=== PATIENT | male | born 1990 | race Caucasian/White ===

== ENCOUNTER → 2018-01-21 | Outpatient (CLI) | payer BC, OTHER ==
[~2018-01-21] MED LIST: RNT150T PO
[2018-01-21 07:09] LABS: BASOPHILS % (AUTO) 1 % (0-10); EOSINOPHILS # (AUTO) 0.2 10^3/uL (0.0-0.3); EOSINOPHILS % (AUTO) 2 % (0-10); HEMATOCRIT 45 % (40-54); HEMOGLOBIN 15.1 G/DL (13.3-17.7); LYMPHOCYTES # (AUTO) 2.1 X 10^3 (1.0-4.0); LYMPHOCYTES % (AUTO) 27 % (12-44); MEAN CORPUSCULAR HEMOGLOBIN 30 PG (25-34); MEAN CORPUSCULAR HGB CONC 34 G/DL (32-36); MEAN CORPUSCULAR VOLUME 88 FL (80-99); MEAN PLATELET VOLUME 10.8 FL (7.4-10.4); MONOCYTES # (AUTO) 0.8 X 10^3 (0.0-1.0); MONOCYTES % (AUTO) 10 % (0-12); NEUTROPHILS # (AUTO) 4.8 X 10^3 (1.8-7.8); NEUTROPHILS % (AUTO) 61 % (42-75); PLATELET COUNT 215 10^3/uL (130-400); RED BLOOD COUNT 5.09 10^6/uL (4.35-5.85); RED CELL DISTRIBUTION WIDTH 13.3 % (10.0-14.5); WHITE BLOOD COUNT 7.9 10^3/uL (4.3-11.0)
[2018-01-21 07:30] LABS: ALANINE AMINOTRANSFERASE 32 U/L (0-55); ALBUMIN 4.5 GM/DL (3.2-4.5); ALKALINE PHOSPHATASE 75 U/L (40-136); AMYLASE 47 U/L (25-125); BILIRUBIN,TOTAL 0.7 MG/DL (0.1-1.0); BUN/CREATININE RATIO 14; CALCIUM 9.8 MG/DL (8.5-10.1); CARBON DIOXIDE 24 MMOL/L (21-32); CHLORIDE 103 MMOL/L (98-107); CREATININE SERUM 1.11 MG/DL (0.60-1.30); GFR ESTIMATED > 60; GLUCOSE 117 MG/DL (70-105); LIPASE 23 U/L (8-78); POTASSIUM 3.8 MMOL/L (3.6-5.0); SODIUM 142 MMOL/L (135-145); TOTAL PROTEIN 7.9 GM/DL (6.4-8.2)
[2018-01-21 07:54] LABS: ERYTHROCYTE SEDIMENTATION RATE 1 MM/HR (0-15)
--- NOTE | 2018-01-21 09:48 | Diagnostic Imaging Report ---
PROCEDURE: US abdomen complete. TECHNIQUE: Multiple real-time grayscale images were obtained over the abdomen in various projections. INDICATION: Bilateral upper quadrant pain. COMPARISON: CT abdomen and pelvis of 10/21/2016. FINDINGS: The liver is normal in size and echogenicity. There is no focal hepatic mass. The main portal vein is patent with antegrade flow. The gallbladder is distended without gallstones, wall thickening, or pericholecystic fluid. The common bile duct is not visualized due to obscuration from overlying bowel gas. The visualized portions of the pancreas are normal. Portions of the head and tail are obscured by overlying bowel gas. The kidneys are normal in size each measuring approximately 11 cm in length. No hydronephrosis, shadowing calculi, or suspicious mass lesion. The spleen is normal in size and has a stable cyst in lower pole measuring 1.3 x 1.2 x 1.1 cm. The aorta and IVC are normal in caliber where seen. Portions of the proximal aorta are obscured by overlying bowel gas. IMPRESSION: 1. Normal gallbladder. The common bile duct is obscured by overlying bowel gas, although there is no intrahepatic biliary duct dilatation. 2. Normal sonographic appearance of the kidneys and liver. 3. Stable small benign cyst in the lower pole of the spleen. Dictated by: Dictated on workstation # [id number]
== END ==
LOC: RAD 06:54
PROVIDERS: ATTEND Internal Medicine
DX: D73.4 Cyst of spleen (principal); R53.82 Chronic fatigue, unspecified; R50.9 Fever, unspecified
CPT/HCPCS: 36415; 76700; 80053; 82150; 83036; 83690; 85025; 85652

== ENCOUNTER → 2018-01-30 | Outpatient (CLI) | payer BC ==
[~2018-01-30] MED LIST changes: +CATHETER FLUSH 10 ML SYR IV PRN
== END ==
LOC: CARD 11:28
PROVIDERS: ATTEND Surgery
DX: R19.7 Diarrhea, unspecified (principal)
CPT/HCPCS: 78227

== ENCOUNTER 2018-02-25 05:50 | Outpatient (CLI) | payer BC ==
[~2018-02-25] VITALS: Ht 185.4 cm; Wt 104.3 kg
[~2018-02-25 05:50] MED LIST changes: -CATHETER FLUSH 10 ML SYR IV PRN
== END 2018-02-25 14:35 ==
LOC: PREOP 05:50
PROVIDERS: ATTEND Surgery
DX: Z01.818 Encounter for other preprocedural examination (principal); K82.8 Other specified diseases of gallbladder

== ENCOUNTER 2018-03-03 05:48 | Day surgery (SDC) | payer BC ==
[~2018-03-03] VITALS: Ht 185.4 cm; Wt 104.3 kg
[2018-03-03 06:10] VITALS: BP 158/94
[2018-03-03] MEDS ORDERED: ceFAZolin 2 GM IV Premixed 50 ML IV ONE (06:15)
[2018-03-03] MEDS: LACTATED RINGERS 1,000 ML IV PRN ×2 (06:30→08:50)
[2018-03-03 06:37] LABS: BASOPHILS % (AUTO) 1 % (0-10); EOSINOPHILS # (AUTO) 0.2 10^3/uL (0.0-0.3); EOSINOPHILS % (AUTO) 3 % (0-10); HEMATOCRIT 43 % (40-54); HEMOGLOBIN 14.6 G/DL (13.3-17.7); LYMPHOCYTES # (AUTO) 2.2 X 10^3 (1.0-4.0); LYMPHOCYTES % (AUTO) 26 % (12-44); MEAN CORPUSCULAR HEMOGLOBIN 30 PG (25-34); MEAN CORPUSCULAR HGB CONC 34 G/DL (32-36); MEAN CORPUSCULAR VOLUME 88 FL (80-99); MEAN PLATELET VOLUME 11.2 FL (7.4-10.4); MONOCYTES # (AUTO) 1.1 X 10^3 (0.0-1.0); MONOCYTES % (AUTO) 12 % (0-12); NEUTROPHILS # (AUTO) 5.2 X 10^3 (1.8-7.8); NEUTROPHILS % (AUTO) 59 % (42-75); PLATELET COUNT 199 10^3/uL (130-400); RED BLOOD COUNT 4.91 10^6/uL (4.35-5.85); RED CELL DISTRIBUTION WIDTH 13.3 % (10.0-14.5); WHITE BLOOD COUNT 8.8 10^3/uL (4.3-11.0)
[2018-03-03] MEDS ORDERED: CATHETER FLUSH 10 ML SYR IV PRN (06:45)
[2018-03-03] MEDS ORDERED: LACTATED RINGERS 1,000 ML IV ONE (07:05)
[2018-03-03] MEDS ORDERED: proPOfol 200 MG/20 ML (DIPRIVAN) VIAL IV ONE (07:05)
[2018-03-03] MEDS ORDERED: SEVOFLURANE (ULTANE) 15 ML INHAL SOLN ONE ×3 (07:05→09:09)
[2018-03-03] MEDS ORDERED: fentaNYL INJECTION 100 MCG/2 ML AMP ONE (07:05)
[2018-03-03] MEDS ORDERED: MIDAZOLAM 2 MG/2 ML (VERSED) VIAL ONE (07:05)
[2018-03-03] MEDS ORDERED: ROCURONIUM 10 MG/ML 5 ML SYRINGE IV ONE (07:05)
[2018-03-03] MEDS ORDERED: LIDOCAINE PF 2% 5 ML (XYLOCAINE) VIAL ONE (07:05)
[2018-03-03] MEDS ORDERED: DEXAMETHASONE 10 MG/ML (DECADRON) 1 ML VIAL ONE (07:05)
[2018-03-03] MEDS ORDERED: ONDANSETRON 4 MG/2 ML (SDV) Z0FRAN ONE (07:05)
[2018-03-03] MEDS ORDERED: LIDOCAINE/EPI 1%-1:200,000 (XYLOCAINE) 10 ML VIAL ONE (07:21)
--- NOTE | 2018-03-03 08:16 | Progress Note-Pre Operative ---
Pre-Operative Progress Note H&P Reviewed The H&P was reviewed, patient examined and no changes noted. Time Seen by Provider: 08:11 Date H&P Reviewed: Mar 03, 2018 Time H&P Reviewed: 08:11 Pre-Operative Diagnosis: Biliary Dyskinesia EDILIA GLEASON DO Mar 03, 2018 08:16
--- NOTE | 2018-03-03 09:14 | Progress Note-Post Operative ---
Post-Operative Progess Note Surgeon (s)/Office Aide (s) Surgeon EDILIA GLEASON DO Office Aide: Yoel Pre-Operative Diagnosis Biliary Dyskinesia Post-Operative Diagnosis Same Procedure & Operative Findings Date of Procedure 03/03/18 Procedure Performed/Findings Laparoscopic Cholecystectomy with robot Anesthesia Type GET Estimated Blood Loss Estimated blood loss (mL): scant Specimens/Packing Specimens Removed GB and contents EDILIA GLEASON DO Mar 03, 2018 09:14
[2018-03-03] MEDS ORDERED: ACHD5005 PO (09:15)
--- NOTE | 2018-03-03 09:17 | Discharge Inst-Surgical ---
Discharge Inst-Surgical Depart Medication/Instructions New, Converted or Re-Newed RX: RX Given to Pt/Family Patient Instructions Follow up Appt: Make appointment for 1 week; [phone]. Instructions: No lifting greater than 10 pounds. No strenuous activity. May shower in 24 hours, no tub bath or soaking. Use incentive spirometer at home as directed. No Smoking Skin/Wound Care: May remove bandages. You need to leave the Dermabond on over incision it will fall off on its own. Symptoms to Report: -Appetite Changes, Extremity Discoloration, Numbness/Tingling, Swelling Increased, Bleeding Excessive, Eyesight Changes, Pain Increased, Urine Color Change, Constipation(Persistent), Fever over 101 degree F, Pain/Pressure in chest, Urinating Difficulty, Cough Up/Vomit Blood, Heart Beat Irreg/Pounding, Pain/Pressure in jaw, Cramps in feet or legs, Lightheadedness, Pain/Pressure in shoulder, Diarrhea(Persistent), Memory Changes Suddenly, Questions/Concerns, Weight gain consecutive days, Dizziness/Fainting, Nausea/Vomiting, Shortness of Breath, Weight gain over 2 pounds. If eyes or skin turn yellow notify physician. If questions or concerns contact your physician Or seek help at emergency department. Activity Activity as Tolerated: Yes Activity Instructions: Avoid Pulling & Pushing, Avoid Stress to Incision Driving Instructions: No Driving/Refer to Diet Discharge Diet: Avoid Fatty Foods, Low Fat/Low Cholesterol Diet After 24 Hours: Clear Liquid if Nauseous If Any Problems/Questions/Issu: Contact Your Physician, Go to Emergency Room Skin/Wound Care Infection Signs and Symptoms: Increased Redness, Foul Odor of Wound, Increased Drainage, Skin Itchy or Has a Rash, Increased Swelling, Temperature Above 101 F Wound Care Comment: Heating pad to shoulder and neck tonight for pain Bathing Instructions: Shower Stitches/Anderson/Dermabond Dis: Dermabond Ice Pack: Ice On and Off Site EDILIA GLEASON DO Mar 03, 2018 09:17
[2018-03-03] MEDS ORDERED: fentaNYL INJECTION 100 MCG/2 ML AMP IVP PRN (09:45)
[2018-03-03] MEDS ORDERED: MEPERIDINE (DEMEROL) INJ 50 MG/ML IVP PRN (09:45)
[2018-03-03] MEDS ORDERED: ONDANSETRON 4 MG/2 ML (SDV) Z0FRAN IVP PRN (09:45)
[2018-03-03] MEDS: morphine INJ 10 MG/ML 1ML (SYR OR VIAL) IVP PRN ×2 (10:05→10:10)
[2018-03-03 10:35] VITALS: BP 154/91
[2018-03-03] MEDS ORDERED: HYDROcodone/APAP 5 MG/325 MG (LORTAB) TAB PO ONE (11:00)
[2018-03-03 11:05] VITALS: BP 144/92
[2018-03-03 11:35] VITALS: BP 143/93
--- NOTE | 2018-03-03 12:48 | Anesthesia-General Post-Op ---
General Patient Condition Mental Status/LOC: Same as Preop Cardiovascular: Satisfactory Nausea/Vomiting: Absent Respiratory: Satisfactory Pain: Controlled Complications: Absent Post Op Complications Complications None Follow Up Care/Instructions Patient Instructions None needed. Anesthesia/Patient Condition Patient Condition Patient is doing well, no complaints, stable vital signs, no apparent adverse anesthesia problems. No complications reported per nursing. JAY KAISER CRNA Mar 03, 2018 12:48
--- NOTE | 2018-03-04 00:13 | OPERATIVE REPORT ---
DATE OF SERVICE: PREOPERATIVE DIAGNOSIS: Biliary dyskinesia. POSTOPERATIVE DIAGNOSIS: Biliary dyskinesia. PROCEDURE: Laparoscopic cholecystectomy with robot. SURGEON: Dr. Romeo. PAYROLL AUDITOR: Ras Diallo DO. ANESTHESIA: General endotracheal tube. SPECIMEN: Gallbladder and contents. BLOOD LOSS: Scant. FLUIDS: Per anesthesia. POSTOPERATIVE CONDITION: Stable. INDICATION FOR PROCEDURE: The patient is a 27-year-old male who has been having some right upper quadrant pain and he had a HIDA scan which showed a 23% ejection fraction, which is indicative of biliary dyskinesia. FINDINGS: The patient had relatively normal appearing gallbladder, no adhesions. PROCEDURE NOTE: After informed consent was obtained, the patient was brought to the operating room, placed on the table in supine position. He was sterilely prepped and draped in normal fashion. Local lidocaine was used to infiltrate the skin above the umbilicus. I then made incision with #11 blade, carried down to skin into subcutaneous tissue, then deepened down to subcutaneous tissue with Bovie electrocautery, down to the fascia. Fascia then incised with Bovie electrocautery. Bluntly entered the abdomen, swept the finger around, then placed 0 Vicryl [id number] suture. Then placed 2 more ports using local lidocaine, 11-blade for stab incision and robotic 8 mm ports were placed under direct visualization and these were about 10 cm away from the midline port and then just out lateral to that another 5 cm, we placed a 5 mm VersaStep port using local lidocaine, 11-blade for stab incision and Versed system, all done under direct visualization. The patient was then placed slightly reverse Trendelenburg and rotated left. Robot was docked and instruments were placed. Dr. Diallo was then able to grasp the gallbladder taken at the fundus, taken in superior direction and able to grasp down to Myron's pouch and pulled in the inferolateral direction and start dissecting out the cystic duct and cystic artery. I was able to get around the cystic duct, placed two clips distally and one proximally and then cut with Bovie electrocautery and then able to find the cystic artery clipped once distally and then cut above this with a Bovie electrocautery and then took the gallbladder off the bed of liver with L-hook cautery. Once it was completely removed, placed a bag in the abdomen, placed the gallbladder in the bag and then removed this through a supraumbilical incision. Placed the port back in the abdomen, copiously irrigated with normal saline, suctioned this out, took pictures and then placed the patient back in supine position, undocked the robot and then removed all ports under direct visualization. Closed the supraumbilical incision with a 0 Vicryl suture previously placed. Copiously irrigated all incisions with normal saline and then closed the supraumbilical incision with 3 interrupted 4-0 undyed Monocryl subcuticular stitches closed with two 8 mm port incisions with 4-0 undyed Monocryl two interrupted sutures and then closed the skin at the 5 mm port with a single interrupted 4-0 undyed Monocryl subcuticular stitch. Area was cleaned and dried. Dermabond placed as well as Band-Aids and the patient then transferred to recovery room in stable condition. Sponge, instrument and needle counts correct at the end of the case. Job ID: [id number] DocumentID: [id number] Dictated Date: 03/03/2018 16:08:15 Racket Stringer Date: 03/04/2018 00:12:51 Dictated By: DO MARCY DYE
== END 2018-03-03 11:55 | disposition home or self-care (01) ==
LOC: SDC 05:48
PROVIDERS: ATTEND Surgery
DX: K82.8 Other specified diseases of gallbladder (principal); Z11.2 Encounter for screening for other bacterial diseases
CPT/HCPCS: 36415; 85025; 87081; 88304

== ENCOUNTER → 2022-03-23 | Outpatient (CLI) | payer BC ==
[~2022-03-23] MED LIST changes: +ACHD5005 PO
[2022-03-23 16:54] LABS: HEMATOCRIT 46 % (40-54); HEMOGLOBIN 15.5 g/dL (13.3-17.7); MEAN CORPUSCULAR HEMOGLOBIN 30 pg (25-34); MEAN CORPUSCULAR HGB CONC 34 g/dL (32-36); MEAN CORPUSCULAR VOLUME 88 fL (80-99); MEAN PLATELET VOLUME 10.9 fL (9.0-12.2); PLATELET COUNT 222 10^3/uL (130-400)
[2022-03-23 17:12] LABS: ALBUMIN 4.5 GM/DL (3.2-4.5)
[2022-03-23 17:13] LABS: CHLORIDE 104 MMOL/L (98-107); POTASSIUM 3.7 MMOL/L (3.6-5.0); SODIUM 142 MMOL/L (135-145)
[2022-03-23 17:14] LABS: CALCIUM 9.3 MG/DL (8.5-10.1)
[2022-03-23 17:15] LABS: GLUCOSE 85 MG/DL (70-105); TOTAL PROTEIN 7.8 GM/DL (6.4-8.2)
[2022-03-23 17:16] LABS: CARBON DIOXIDE 25 MMOL/L (21-32)
[2022-03-23 17:17] LABS: BILIRUBIN,TOTAL 0.6 MG/DL (0.1-1.0)
[2022-03-23 17:18] LABS: ALKALINE PHOSPHATASE 71 U/L (40-136)
[2022-03-23 17:19] LABS: CREATININE SERUM 1.16 MG/DL (0.60-1.30); GFR ESTIMATED 86
[2022-03-23 17:20] LABS: BUN/CREATININE RATIO 10
[2022-03-23 17:21] LABS: ALANINE AMINOTRANSFERASE 38 U/L (0-55)
--- NOTE | 2022-03-23 17:29 | Diagnostic Imaging Report ---
CLINICAL INDICATION: Patient with chest pain. EXAM: Chest x-ray PA and lateral views. COMPARISON: Chest x-ray dated 03/22/2011. FINDINGS: Lungs/pleura: Lungs are clear. There is no pneumothorax. There is no pleural effusion. Mediastinum: Unremarkable. Pulmonary vasculature: Unremarkable. Heart: Unremarkable. Bones/extrathoracic soft tissue: Unremarkable. IMPRESSION: There is no radiographic evidence of acute cardiopulmonary process. Dictated by: Dictated on workstation # [id number]
== END ==
LOC: RT 16:07
PROVIDERS: ATTEND Internal Medicine
DX: R07.9 Chest pain, unspecified (principal); R06.00 Dyspnea, unspecified; R06.2 Wheezing; R53.83 Other fatigue
CPT/HCPCS: 36415; 71046; 80053; 83880; 84484; 85027; 85379; 93005

== ENCOUNTER → 2022-04-10 | Outpatient (CLI) | payer BC ==
[~2022-04-10] MED LIST changes: +RT-ALBUTEROL SULF 2.5 MG/3 ML PRE-MIX VIAL INH ONE
== END ==
LOC: RT 08:00
PROVIDERS: ATTEND Internal Medicine
DX: I51.7 Cardiomegaly (principal); R06.00 Dyspnea, unspecified
CPT/HCPCS: 93306; 94060; 94726; 94729

== ENCOUNTER 2022-10-18 19:27 | Outpatient (CLI) | payer BC ==
[~2022-10-18 19:27] MED LIST changes: -RT-ALBUTEROL SULF 2.5 MG/3 ML PRE-MIX VIAL INH ONE
== END 2022-10-19 06:28 | disposition home or self-care (01) ==
LOC: SLEEP 19:27
PROVIDERS: ATTEND Nurse Practitioner
DX: G47.33 Obstructive sleep apnea (adult) (pediatric) (principal); G47.10 Hypersomnia, unspecified; G47.36 Sleep related hypoventilation in conditions classified elsewhere
CPT/HCPCS: 95810

== ENCOUNTER → 2023-02-14 | Outpatient (CLI) | payer BC ==
[~2023-02-14] MED LIST changes: +HOLD METFORMIN - RECEIVED CONTRAST 20 ML VIAL IV SCH; +IOHEXOL 350 MG/ML 100 ML (OMNIPAQUE 350) VIAL IV ONE; +NITROGLYCERIN 0.4 MG SL TABS BTL 25'S SL STA; +NS 100 ML (IVPB) BAG IV ONE; +meTOprolol 5 MG/5 ML (LOPRESSOR) VIAL IV PRN
[2023-02-14 14:00] VITALS: BP 133/90
[2023-02-14 14:30] VITALS: BP 122/83
[2023-02-14 14:35] VITALS: BP 113/69
[2023-02-14 14:40] VITALS: BP 134/77
[2023-02-14 14:45] VITALS: BP 122/90
--- NOTE | 2023-02-14 16:01 | Diagnostic Imaging Report ---
EXAMINATION: CTA of the coronary arteries. TECHNIQUE: Contrast enhanced thin section helical images were obtained through the heart and coronary arteries with intravenous contrast timed for the optimal opacification of the coronary arterial structures per gated CTA protocol. Post-processing, reconstructions and interpretation of angiographic images of the vessels was performed. 3D MIP reconstructions were performed and reviewed. All CT scans use one or more of the following dose optimizing techniques: automated exposure control, MA and/or KvP adjustment based on a patient size and exam type, or iterative reconstruction. HISTORY: Chest pain COMPARISON: None available. FINDINGS: Left main coronary artery is normal. Left anterior descending artery is normal. Right coronary artery is normal. Circumflex artery is normal. The coronary arteries are right dominant. There is no anomalous coronary artery origin or course. There is no myocardial bridging. There is no ventricular dilation or hypertrophy. Both atria are normal in size. Aorta is normal in caliber. There is no edema or pneumonia. No pleural effusion. No pneumothorax. No suspicious nodules. No pericardial effusion. There is no axillary or supraclavicular lymphadenopathy. There is no mediastinal lymphadenopathy. Limited views of the upper abdomen are unremarkable. There are no suspicious osseus lesions. IMPRESSION: 1. Normal coronary arteries. Dictated by: Dictated on workstation # [id number]
== END ==
LOC: RAD 13:37
PROVIDERS: ATTEND Internal Medicine Cardiovascular Disease
DX: R07.9 Chest pain, unspecified (principal)
CPT/HCPCS: 75574; 93005

== ENCOUNTER → 2023-03-28 | Outpatient (CLI) | payer BC ==
[~2023-03-28] MED LIST changes: +CEPH500T PO; -HOLD METFORMIN - RECEIVED CONTRAST 20 ML VIAL IV SCH; +HYDR-3817 PO; -IOHEXOL 350 MG/ML 100 ML (OMNIPAQUE 350) VIAL IV ONE; -NITROGLYCERIN 0.4 MG SL TABS BTL 25'S SL STA; -NS 100 ML (IVPB) BAG IV ONE; +TMSL.4C PO; -meTOprolol 5 MG/5 ML (LOPRESSOR) VIAL IV PRN
== END ==
LOC: CARD 14:39
PROVIDERS: ATTEND Internal Medicine Cardiovascular Disease
DX: R07.9 Chest pain, unspecified (principal)
CPT/HCPCS: 93306

== ENCOUNTER 2023-03-31 06:15 | Emergency (ER) | payer BC ==
[~2023-03-31] VITALS: Ht 185.5 cm; Wt 106.6 kg
[~2023-03-31 06:15] MED LIST changes: -CEPH500T PO; -HYDR-3817 PO; -TMSL.4C PO
[2023-03-31] MEDS ORDERED: NS IV 1000 ML 1,000 ML IV STA (06:43)
[2023-03-31] MEDS ORDERED: KETOROLAC 30 MG/ML VIAL IVP STA (06:43)
--- NOTE | 2023-03-31 06:50 | ED Abdominal Pain ---
General Chief Complaint: Abdominal/GI Problems Stated Complaint: LEFT LOWER ABD PX Nursing Triage Note: PT A&OX4; PT AMBULATES TO ROOM WITHOUT ASSISTANCE OF ER STAFF; PT ADVISES THAT HE WAS AT WORK AND HAD A SUDDEN ONSET OF SEVERE LLQ ABD PAIN FOLLOWED BY AN EPISODE OF VOMITING; PT REPORTS THAT AFTER VOMITING HE HAD MULTIPLE EPISODES OF DRY HEAVING; PT REPORTS PAIN HAS PERSISTED AND IS SHARP IN NATURE Source of Information: Patient Exam Limitations: No Limitations History of Present Illness Date Seen by Provider: March 31, 2023 Time Seen by Provider: 06:31 Initial Comments Here with report of left-sided abdominal pain that started this morning. Pain is in the left side with minimal radiation to the left low back. He has had several episodes of vomiting and or dry heaving. Reports this pain is sharp. Does have history of diverticulosis but no history of diverticulitis. States that he has had some increased urgency to urinate over the last few days without increased urination and volume. Denies fever or chills. Denies diarrhea. Denies blood in his urine or stool. Follows with Dr. Hudson. Timing/Duration: 1-3 Hours Severity/Quality: Moderate, Sharp, Stabbing Location: LLQ, Flank (Left) Radiation: Back (Left low back) Activities at Onset: None Modifying Factors: Worsens With Movement Associated Symptoms: No Fever/Chills, No Weakness Allergies and Home Medications Allergies Coded Allergies: No Known Drug Allergies (Unverified , 02/25/18) Patient Home Medication List Home Medication List Reviewed: Yes Hydrocodone Bit/Acetaminophen (Lortab 5 Mg Tablet) 1 Tab Tab, 1 TAB PO Q6H PRN Prescribed by: EDILIA GLEASON on 03/03/18 0915 Review of Systems Review of Systems Constitutional: see HPI EENTM: No Symptoms Reported Respiratory: Denies Cough, Denies Shortness of Air Cardiovascular: No Symptoms Reported Gastrointestinal: Abdominal Pain; Denies Diarrhea; Nausea; Denies Rectal Bleeding; Vomiting Genitourinary: Denies Hematuria; Urgency Musculoskeletal: back pain Skin: no symptoms reported Past Ejuaqqk-Xqlsfr-Biilhs Hx Patient Social History Tobacco Use?: No Smokeless Tobacco Frequency: Current Everyday User Use of E-Cig and/or Vaping dev: No Substance use?: No Alcohol Use?: No Pt feels they are or have been: No Immunizations Up To Date Tetanus Booster (TDap): Unknown PED Vaccines UTD: No Influenza Vaccine Up-to-Date: No; Not Current First/Initial COVID19 Vaccinat: N/A Seasonal Allergies Seasonal Allergies: No Past Medical History Surgeries: Yes Gallbladder, Orthopedic Respiratory: No Cardiac: Yes Irregular Heartbeat Reproductive Disorders: No Sexually Transmitted Disease: No HIV/AIDS: No Gastrointestinal: Yes Diverticulosis, Gall Bladder Disease Loss of Vision: Bilateral Hearing Impairment: Denies Adverse Reaction/Blood Tranf: No (N/A) Family Medical History Reviewed and Corrections made Physical Exam Vital Signs Vital Signs - First Documented 03/31/23 06:30 Temp 36.4 Pulse 78 Resp 16 B/P (MAP) 172/109 (130) Pulse Ox 98 O2 Delivery Room Air Capillary Refill : Less Than 3 Seconds Height/Weight/BMI Height: 6'1.00" Weight: 230lbs. 0.0oz. 104.504177dl; 30.00 BMI Method:Stated General Appearance: WD/WN, no apparent distress Neck: full range of motion, supple Respiratory: lungs clear, normal breath sounds Cardiovascular: regular rate, rhythm, no murmur Gastrointestinal: normal bowel sounds, soft; No guarding, No rebound; tenderness (Left lower quadrant and left flank) Extremities: non-tender, normal inspection Back: normal inspection, no CVA tenderness, no vertebral tenderness Neurologic/Psychiatric: alert, oriented x 3 Skin: normal color, warm/dry Progress/Results/Core Measures Results/Orders Lab Results Laboratory Tests Test 03/31/23 06:46 Range/Units White Blood Count 19.2 H 4.3-11.0 10^3/uL Red Blood Count 5.41 4.30-5.52 10^6/uL Hemoglobin 16.1 13.3-17.7 g/dL Hematocrit 48 40-54 % Mean Corpuscular Volume 89 80-99 fL Mean Corpuscular Hemoglobin 30 25-34 pg Mean Corpuscular Hemoglobin Concent 33 32-36 g/dL Red Cell Distribution Width 12.6 10.0-14.5 % Platelet Count 246 130-400 10^3/uL Mean Platelet Volume 11.4 9.0-12.2 fL Immature Granulocyte % (Auto) 0 % Neutrophils (%) (Auto) 71 42-75 % Lymphocytes (%) (Auto) 17 12-44 % Monocytes (%) (Auto) 10 0-12 % Eosinophils (%) (Auto) 1 0-10 % Basophils (%) (Auto) 0 0-10 % Neutrophils # (Auto) 13.7 H 1.8-7.8 10^3/uL Lymphocytes # (Auto) 3.2 1.0-4.0 10^3/uL Monocytes # (Auto) 2.0 H 0.0-1.0 10^3/uL Eosinophils # (Auto) 0.2 0.0-0.3 10^3/uL Basophils # (Auto) 0.1 0.0-0.1 10^3/uL Immature Granulocyte # (Auto) 0.1 0.0-0.1 10^3/uL Neutrophils % (Manual) 81 % Lymphocytes % (Manual) 15 % Monocytes % (Manual) 3 % Eosinophils % (Manual) 1 % Basophils % (Manual) 0 % Band Neutrophils 0 % Blood Morphology Comment NORMAL Urine Color YELLOW Urine Clarity SL CLOUDY Urine pH 5.5 5-9 Urine Specific Mcintosh >=1.030 1.016-1.022 Urine Protein TRACE H NEGATIVE Urine Glucose (UA) NEGATIVE NEGATIVE Urine Ketones NEGATIVE NEGATIVE Urine Nitrite NEGATIVE NEGATIVE Urine Bilirubin NEGATIVE NEGATIVE Urine Urobilinogen 0.2 < = 1.0 MG/DL Urine Leukocyte Esterase NEGATIVE NEGATIVE Urine RBC (Auto) 3+ H NEGATIVE Urine RBC 50-100 H /HPF Urine WBC NONE /HPF Urine Squamous Epithelial Cells NONE /HPF Urine Crystals NONE /LPF Urine Bacteria NEGATIVE /HPF Urine Casts NONE /LPF Urine Mucus NEGATIVE /LPF Urine Culture Indicated NO Sodium Level 143 135-145 MMOL/L Potassium Level 3.8 3.6-5.0 MMOL/L Chloride Level 106 98-107 MMOL/L Carbon Dioxide Level 26 21-32 MMOL/L Anion Gap 11 5-14 MMOL/L Blood Urea Nitrogen 19 H 7-18 MG/DL Creatinine 1.42 H 0.60-1.30 MG/DL Estimat Glomerular Filtration Rate 67 BUN/Creatinine Ratio 13 Glucose Level 173 H 70-105 MG/DL Calcium Level 9.1 8.5-10.1 MG/DL Corrected Calcium 8.8 8.5-10.1 MG/DL Total Bilirubin 0.5 0.1-1.0 MG/DL Aspartate Amino Transf (AST/SGOT) 20 5-34 U/L Alanine Aminotransferase (ALT/SGPT) 43 0-55 U/L Alkaline Phosphatase 70 40-136 U/L C-Reactive Protein High Sensitivity 0.17 0.00-0.50 MG/DL Total Protein 7.4 6.4-8.2 GM/DL Albumin 4.4 3.2-4.5 GM/DL My Orders Orders - DINAH DOLAN MD Cbc With Automated Diff (03/31/23 06:43) Comprehensive Metabolic Panel (03/31/23 06:43) Hs C Reactive Protein (03/31/23 06:43) Ua Culture If Indicated (03/31/23 06:43) Ns Iv 1000 Ml (Sodium Chloride 0.9%) (03/31/23 06:43) Ed Iv/Invasive Line Start (03/31/23 06:43) Ketorolac Injection (Toradol Injection) (03/31/23 06:43) Manual Differential (03/31/23 06:46) Ct Abd/Pelvis Wo(Kidney Stone) (03/31/23 07:09) Fentanyl Inj (Sublimaze Injection) (03/31/23 07:10) Vital Signs/I&O 03/31/23 06:30 Temp 36.4 Pulse 78 Resp 16 B/P (MAP) 172/109 (130) Pulse Ox 98 O2 Delivery Room Air Blood Pressure Mean: 130 Progress Progress Note : Progress Note Seen and evaluated. IV, labs including CBC, CMP and CRP ordered. Normal saline 1 L bolus. Toradol [address] abdomen and pelvis considered but we will hold pending UA to determine with or without contrast. We will increase pain medication if required if Toradol is not working. Monitor patient. Differential diagnosis includes UTI, ureteral stone, diverticulitis, other bowel pathology, dehydration, electrolyte abnormality 0820: Patient does have elevated white count and slightly elevated serum creati nine on review of CBC and CMP. UA shows blood. CT abdomen pelvis ordered and is complete. Pending radiology report. I have reviewed the CT scan and do see distal left ureteral stone with hydronephrosis at least mild to moderate with no diverticulitis on my interpretation. Pending radiology report. Patient did receive fentanyl 75 mcg IV for pain as his pain was not significantly improved earlier. Monitor patient. 0837: Radiology confirms ureteral stone without other findings. Patient is doing better. Discharged home with return precautions, OTC instructions, follow-up instructions and outpatient plan. Patient verbalized understand instructions and agreement with plan. Diagnostic Imaging Diagonstic Imaging: CT Plain Films/CT/US/NM/MRI: abdomen, pelvis Comments [facility]. [place], [place] NAME: CASEY EDMONDSON [facility] REC#: [id number] PT STATUS: REG ER : 1990 PHYSICIAN: DINAH DOLAN MD ADMIT DATE: 03/31/23/ER Signed Date of Exam:03/31/23 CT ABD/PELVIS WO(KIDNEY STONE) INDICATION: Flank pain, suspect kidney stone TECHNIQUE: Multiple contiguous axial images were obtained through the abdomen and pelvis without the use of intravenous contrast. Auto Exposure Controls were utilized during the CT exam to meet ALARA standards for radiation dose reduction. There is no prior study for comparison. The visualized portions of the lung bases show dependent atelectatic changes but are otherwise clear. There was no pleural fluid collection. There is no free intraperitoneal air. The liver shows no focal lesion. Spleen, adrenals, and pancreas are normal. The right kidney appears normal. The left kidney shows hydronephrosis and hydroureter, down to the level of a 2 mm stone just above the left UVJ. There is no retroperitoneal mass or adenopathy. There is no ascites or abnormal fluid collection. Visualized bowel loops are unremarkable. IMPRESSION: There is left hydronephrosis and hydroureter, secondary to a 2 mm stone in the left distal ureter near the UVJ. There is no other significant finding. Dictated by: Dictated on workstation # [id number] Dict: 03/31/23 08 Trans: 03/31/23828 [facility] [id number] Interpreted by: ORIANA CABA MD Electronically signed by: ORIANA CABA MD 03/31/23828 Reviewed: Reviewed by Me Departure Impression Primary Impression: Left ureteral stone Disposition: 01 HOME, SELF-CARE Condition: Improved Departure-Patient Inst. Decision time for Depature: 08:33 Referrals: LUZ HUDSON DO (PCP/Family) Primary Care Physician Patient Instructions: Kidney Stone, Adult ED Add. Discharge Instructions: All discharge instructions reviewed with patient and/or family. Voiced understanding. You may take ibuprofen 600 mg every 8 hours as needed for pain. You may also take Tylenol/acetaminophen 1000 mg every 8 hours as needed for pain. Do not take Tylenol/acetaminophen with the prescribed pain medicine as they both have acetaminophen in them. You will need to follow-up with the urologist of your choosing for recheck and further evaluation. You may discuss this with your d octor as well. Drink plenty of fluids as you will need to pass the stone. Strain your urine to evaluate if the stone is passed. Return for worse pain, fever, vomiting, weakness, breathing problems or other concerns as needed. Scripts Tamsulosin HCl (Flomax) 0.4 Mg Cap 0.4 MG PO DAILY for 14 Days, #14 CAP 0 Refills Prov: DINAH DOLAN MD 03/31/23 Hydrocodone/Acetaminophen (Hydrocodone-Acetamin 7.5-325) 7.5 Mg-325 Mg Tablet 1 EACH PO Q6H PRN for PAIN-MODERATE (5-7) for 3 Days, #8 TAB 0 Refills Prov: DINAH DOLAN MD 03/31/23 Cephalexin (Cephalexin) 500 Mg Tablet 500 MG PO BID, #10 TAB 0 Refills Prov: DINAH DOLAN MD 03/31/23 Copy Copies To 1: LUZ HUDSON TIMOTHY D MD March 31, 2023 06:50
[2023-03-31 06:52] LABS: ALBUMIN 4.4 GM/DL (3.2-4.5); POTASSIUM 3.8 MMOL/L (3.6-5.0)
[2023-03-31 06:53] LABS: BASOPHILS # (AUTO) 0.1 10^3/uL (0.0-0.1); BASOPHILS % (AUTO) 0 % (0-10); BILIRUBIN,URINE NEGATIVE (NEGATIVE); CALCIUM 9.1 MG/DL (8.5-10.1); COLOR,URINE YELLOW; EOSINOPHILS # (AUTO) 0.2 10^3/uL (0.0-0.3); EOSINOPHILS % (AUTO) 1 % (0-10); GLUCOSE, URINE (UA) NEGATIVE (NEGATIVE); HEMATOCRIT 48 % (40-54); HEMOGLOBIN 16.1 g/dL (13.3-17.7); KETONES,URINE NEGATIVE (NEGATIVE); LEUKOCYTE ESTERASE ,URINE NEGATIVE (NEGATIVE); LYMPHOCYTES # (AUTO) 3.2 10^3/uL (1.0-4.0); LYMPHOCYTES % (AUTO) 17 % (12-44); MEAN CORPUSCULAR HEMOGLOBIN 30 pg (25-34); MEAN CORPUSCULAR HGB CONC 33 g/dL (32-36); MEAN CORPUSCULAR VOLUME 89 fL (80-99); MEAN PLATELET VOLUME 11.4 fL (9.0-12.2); MONOCYTES % (AUTO) 10 % (0-12); NEUTROPHILS # (AUTO) 13.7 10^3/uL (1.8-7.8); NEUTROPHILS % (AUTO) 71 % (42-75); NITRITE,URINE NEGATIVE (NEGATIVE); PH,URINE 5.5 (5-9); PLATELET COUNT 246 10^3/uL (130-400); PROTEIN,URINE TRACE (NEGATIVE); WHITE BLOOD COUNT 19.2 10^3/uL (4.3-11.0)
[2023-03-31 06:54] LABS: TOTAL PROTEIN 7.4 GM/DL (6.4-8.2)
[2023-03-31 06:56] LABS: BILIRUBIN,TOTAL 0.5 MG/DL (0.1-1.0)
[2023-03-31 06:58] LABS: CREATININE SERUM 1.42 MG/DL (0.60-1.30)
[2023-03-31 07:06] LABS: BACTERIA,URINE NEGATIVE /HPF; CLARITY,URINE SL CLOUDY; RBC,URINE 50-100 /HPF
[2023-03-31 07:10] LABS: BAND NEUTROPHILS 0 %; EOSINOPHILS % (MANUAL) 1 %; LYMPHOCYTES % (MANUAL) 15 %; MONOCYTES % (MANUAL) 3 %; NEUTROPHILS % (MANUAL) 81 %
[2023-03-31] MEDS ORDERED: fentaNYL INJ 100 MCG/2 ML AMP IVP STA (07:10)
[2023-03-31 07:11] LABS: BASOPHILS % (MANUAL) 0 %; RBC MORPH NORMAL
--- NOTE | 2023-03-31 08:23 | Diagnostic Imaging Report ---
INDICATION: Flank pain, suspect kidney stone TECHNIQUE: Multiple contiguous axial images were obtained through the abdomen and pelvis without the use of intravenous contrast. Auto Exposure Controls were utilized during the CT exam to meet ALARA standards for radiation dose reduction. There is no prior study for comparison. The visualized portions of the lung bases show dependent atelectatic changes but are otherwise clear. There was no pleural fluid collection. There is no free intraperitoneal air. The liver shows no focal lesion. Spleen, adrenals, and pancreas are normal. The right kidney appears normal. The left kidney shows hydronephrosis and hydroureter, down to the level of a 2 mm stone just above the left UVJ. There is no retroperitoneal mass or adenopathy. There is no ascites or abnormal fluid collection. Visualized bowel loops are unremarkable. IMPRESSION: There is left hydronephrosis and hydroureter, secondary to a 2 mm stone in the left distal ureter near the UVJ. There is no other significant finding. Dictated by: Dictated on workstation # [id number]
[2023-03-31] MEDS ORDERED: CEPH500T PO (08:35)
[2023-03-31] MEDS ORDERED: TMSL.4C PO (08:35)
[2023-03-31] MEDS ORDERED: HYDR-3817 PO (08:35)
[2023-03-31] MEDS ORDERED: HYDROcodone/APAP 7.5 MG/325 MG (LORTAB, LORCET PLUS) TABLET PO STA (08:39)
[2023-03-31 08:57] VITALS: BP 169/106
== END 2023-03-31 09:00 | disposition home or self-care (01) ==
LOC: EDUNIT# 06:15 → ER 06:18
DX: N13.2 Hydronephrosis with renal and ureteral calculous obstruction (principal); F17.200 Nicotine dependence, unspecified, uncomplicated; Z28.310 Unvaccinated for COVID-19
CPT/HCPCS: 36415; 74176; 80053; 81000; 85007; 85027; 86141

== ENCOUNTER → 2023-04-10 | Outpatient (CLI) | payer BC ==
[~2023-04-10] MED LIST changes: +CEPH500T PO; +HYDR-3817 PO; +TMSL.4C PO
[2023-04-10 14:54] VITALS: BP 144/86
--- NOTE | 2023-04-10 14:54 | Cardiology Stress Test Report ---
Stress Test Report Date of Procedure/Referring: Date of Procedure: April 10, 2023 PCP Moni Fox DO Admitting Physician Admitting Physician: Attending Physician: Ricahrd Henderson MD Baseline Heart Rate: 60 Baseline Blood Pressure: Blood Pressure Systolic: 144 Blood Pressure Diastolic: 86 Baseline EKG: Baseline EKG: NSR Summary/Conclusion: Summary: In summary, the patient started exercising with a baseline heart rate, blood pressure and EKG mentioned above Patient was able to exercise for a total of 9 minutes on Frank protocol, METs 10.5 Maximum heart rate 165 Maximum blood pressure 191/78 Stress EKG, Minimal nondiagnostic changes Recovery EKG , Return to baseline Conclusion: 1. Good exercise tolerance for a total of 9 minutes on Frank protocol, 10.5 METs, achieving 88 percent of maximum expected heart rate 2. Minimal nondiagnostic EKG changes with exercise returned to baseline during recovery 3. No arrhythmia was noted Copy Copies To 1: MONI FOX BASHAR J MD April 10, 2023 14:54
== END ==
LOC: CARD 14:15
PROVIDERS: ATTEND Internal Medicine Cardiovascular Disease
DX: R07.9 Chest pain, unspecified (principal)

== ENCOUNTER → 2023-04-24 | Outpatient (CLI) | payer BC ==
--- NOTE | 2023-04-24 12:46 | Diagnostic Imaging Report ---
INDICATION: History of renal calculus. COMPARISON: CT dated 03/31/2023 FINDINGS: 2 frontal radiographic views of the abdomen were obtained and show nondilated loops of small bowel. There is no large collection of free intraperitoneal air. Small extraosseous calcifications noted projecting over the left hemipelvis, but is felt to correspond to a phlebolith when compared to previous CT. No other unexpected extraosseous calcifications or radiopaque foreign bodies are seen. IMPRESSION: 1. Nonobstructed small bowel gas pattern. 2. Probable left pelvic phlebolith. Dictated by: Dictated on workstation # [id number]
== END ==
LOC: RAD 09:38
PROVIDERS: ATTEND Urology
DX: N20.0 Calculus of kidney (principal); R14.0 Abdominal distension (gaseous)
CPT/HCPCS: 74018

== ENCOUNTER → 2023-05-13 | Outpatient (CLI) | payer BC ==
[~2023-05-13] MED LIST changes: +HOLD METFORMIN - RECEIVED CONTRAST 20 ML VIAL IV SCH; +IOHEXOL 350 MG/ML 100 ML (OMNIPAQUE 350) VIAL IV ONE; +NS 100 ML (IVPB) BAG IV ONE
--- NOTE | 2023-05-13 16:14 | Diagnostic Imaging Report ---
PROCEDURE: CT abdomen and pelvis with and without contrast. TECHNIQUE: Precontrast acquisitions were acquired through the abdomen and pelvis. Multiple contiguous axial images were obtained through the abdomen and pelvis after the administration of intravenous contrast. Auto Exposure Controls were utilized during the CT exam to meet ALARA standards for radiation dose reduction. INDICATION: Gross hematuria COMPARISON: 03/31/2023 FINDINGS: There is no focal hepatic abnormality. Several low-density nodules in the spleen may represent cysts measuring up to 1.7 cm in maximal diameter. There is no evidence of pancreatic, adrenal gland or renal abnormality. There is mild prominence of renal collecting systems however no dave hydronephrosis or hydroureter is identified. There is no evidence of ureteric stone or obstruction. Partially opacified urinary bladder is unremarkable. There is no evidence of filling defect. The appendix has a normal appearance. IMPRESSION: Resolution of calculus in the left ureter. There is no evidence of obstructive uropathy or urinary tract mass to account for patient's hematuria. Dictated by: Dictated on workstation # [id number]
== END ==
LOC: RAD 15:15
PROVIDERS: ATTEND Urology
DX: N20.1 Calculus of ureter (principal); R31.0 Gross hematuria
CPT/HCPCS: 74178